=== PATIENT | male | born 1960 | race Caucasian/White ===

== ENCOUNTER 2018-04-25 05:54 | Day surgery (SDC) | payer MEDICARE, OTHER ==
[~2018-04-25] VITALS: Ht 177.8 cm; Wt 139.7 kg
[2018-04-25 07:12] VITALS: Ht 177.8 cm; Wt 139.7 kg
[2018-04-25] MEDS ORDERED: amlodipine PO (07:24)
[2018-04-25] MEDS ORDERED: TIOT4MIS4 INHALATION (07:24)
[2018-04-25] MEDS ORDERED: alprazolam PO (07:24)
[2018-04-25] MEDS ORDERED: METO-429 PO (07:24)
[2018-04-25] MEDS ORDERED: HYDR-3609 PO (07:24)
[2018-04-25] MEDS ORDERED: aripiprazole PO (07:24)
[2018-04-25] MEDS ORDERED: benazepril PO (07:24)
[2018-04-25] MEDS ORDERED: ASPI-535 PO (07:24)
[2018-04-25 07:38] VITALS: BP 130/73; PULSE 58; RESP 24
--- NOTE | 2018-04-25 07:50 | PREAC ---
Date/Time of Note Date/Time of Note DATE: 04/25/18 TIME: 07:48 Anesthesia Eval and Record Evaluation Time Pre-Procedure Interview DATE: 04/25/18 TIME: 07:48 Age 57 Sex male NPO: 8 hrs Preoperative diagnosis Screening and Abdominal Pain Planned procedure EGD & Colonoscopy Past Medical History Past Medical History: Includes Cardio: HTN, Dyslipidemia Pulm: COPD Neuro: Other (Bipolar Disorder) GI: Obesity Psych: Depression, Anxiety Surgery & Anesthesia Issues No known issue Meds Anticoagulation: No Beta Cait within 24 hr: No Reason Beta Cait not given: Pt. not on B-Cait Reported Medications Tiotropium Br/Olodaterol HCl (Stiolto Respimat Inhal [place]) 4 Gm Mist.inhal, 2 PUFF INHALATION DAILY PRN for SHORTNESS OF BREATH, #1 INHALER 04/25/18 Metoprolol Tartrate* (Lopressor*) 50 Mg Tab, 50 MG PO DAILY, #60 TAB 04/25/18 Hydrocodone/Acetaminophen (Hydrocodone-Acetamin 10-325 mg) 1 Each Tablet, 1 EACH PO DAILY PRN for PAIN AND/OR INFLAMMATION, TAB 04/25/18 Aspirin Ec (Aspir 81) 81 Mg Tablet.dr, 81 MG PO DAILY, #30 TAB 04/25/18 [aripiprazole] No Conflict Check, PO DAILY 04/25/18 [amlodipine] No Conflict Check, PO DAILY 04/25/18 [alprazolam] No Conflict Check, PO DAILY PRN for ANXIETY 04/25/18 [benazepril] No Conflict Check, PO DAILY 04/25/18 Meds reviewed: Yes Allergies Coded Allergies: No Known Drug Allergies (Verified Allergy, Unknown, 04/25/18) Allergies Reviewed: Yes Labs/Studies Labs Reviewed: Reviewed by anesthesiologist test: N/A Studies: ECG (n/a), CXR (n/a) Pre-procedure Exam Airway: Adequate mouth opening, Adequate thyromental dist Mallampati: Mallampati II Teeth: Normal Lung: Normal Heart: Normal ASA Physical Status ASA physical status: 3 Emergency: None Planned Anesthetic General/MAC: MAC Planned Pain Management Parenteral pain med Pre-operative Attestations Prior to commencing anesthesia and surgery, the patient was re-evaluated, there was verification of: *The patient's identity *The results of appropriate recent lab work and preoperative vital signs *The above evaluation not changing prior to induction *Anesthetic plan, risk benefits, alternative and complications discussed with patient/family; questions answered; patient/family understands, accepts and wishes to proceed. MARTÍN COPE MD Apr 25, 2018 07:50
[2018-04-25] MEDS ORDERED: ONDANSETRON 4 MG INJ IV PRN (08:00)
[2018-04-25] MEDS ORDERED: LABETALOL HCL 20MG INJ IV PRN (08:00)
[2018-04-25] MEDS ORDERED: HYDROmorphONE 1 MG/5 ML IV SYRINGE IV PRN (08:00)
[2018-04-25] MEDS ORDERED: FENTAnyl 50 MCG/ML VIAL IV PRN (08:00)
[2018-04-25] MEDS ORDERED: hydrALAzine 20 MG INJ IV PRN (08:00)
--- NOTE | 2018-04-25 08:21 | PAC ---
Date/Time of Note Date/Time of Note DATE: 04/25/18 TIME: 08:20 Post-Anesthesia Notes Post-Anesthesia Note Last documented vital signs T: 98.0 Activity: WNL Respiratory function: WNL Cardiovascular function: WNL Mental status: Baseline Pain reasonably controlled: Yes Hydration appropriate: Yes Nausea/Vomiting absent: Yes MARTÍN COPE MD Apr 25, 2018 08:21
[2018-04-25] MEDS ORDERED: PROPOFOL 60 ML ONE (08:26)
[2018-04-25 08:48] VITALS: BP 120/78; PULSE 50; RESP 15
== END 2018-04-25 11:22 | disposition home or self-care (01) ==
LOC: GIL 05:54
PROVIDERS: ATTEND Internal Medicine Gastroenterology
DX: Z12.11 Encounter for screening for malignant neoplasm of colon (principal); K62.1 Rectal polyp; K20.8 Other esophagitis; K29.31 Chronic superficial gastritis with bleeding; I10 Essential (primary) hypertension; E78.5 Hyperlipidemia, unspecified; J44.9 Chronic obstructive pulmonary disease, unspecified; E66.9 Obesity, unspecified; Z68.41 Body mass index [BMI] 40.0-44.9, adult
CPT/HCPCS: 88305; 88312; 88313